=== PATIENT | male | born 1970 | race Two or more races ===

== ENCOUNTER 2020-01-20 13:03 | Outpatient (CLI) | payer MEDICAID ==
--- NOTE | 2020-01-20 20:45 | Consultation ---
DATE OF CONSULTATION: 01/20/2020 CHIEF COMPLAINT: GERD. HISTORY OF PRESENT ILLNESS: This is a very pleasant 50-year-old male with history of HIV/AIDS complaining of acid reflux symptoms for about six months for which he started taking Nexium and the symptoms as along as the patient is on Nexium is better, now even if he does not take the Nexium for three to four days he is still okay and then he started having some acid reflux symptoms. According to him, he has HIV/AIDS, he was off medication. He is back on his medications since October. His CD4 count is coming up and his symptoms are getting better. PAST SURGICAL HISTORY: None. PAST MEDICAL HISTORY: 1. HIV/AIDS. 2. GERD. MEDICATIONS: Nexium and HIV medications. FAMILY HISTORY: No family history of GI malignancies. SOCIAL HISTORY: The patient denies any recent tobacco, alcohol, or drug abuse. ALLERGIES: No known drug allergies. REVIEW OF SYSTEMS: Negative. PHYSICAL EXAMINATION: GENERAL: A well-developed male, in no acute distress HEENT: Normocephalic and atraumatic. Sclerae anicteric. NECK: Supple. No evidence of obvious lymphadenopathy. CARDIOVASCULAR: Regular rate and rhythm. Plus S1, S2. LUNGS: Clear to auscultation bilaterally. ABDOMEN: Positive bowel sounds. Soft and nontender. No rebound. No guarding. No peritoneal sign. EXTREMITIES: No cyanosis. No clubbing. No edema. ASSESSMENT AND PLAN: The patient is a 50-year-old male with mild GERD. The patient was told to continue to Nexium every as needed to prevent symptoms. At this time, there does not seem to be any alarming symptoms including weight loss, dysphagia, GI bleeding. I told the patient that the he would need colonoscopy when he turned to age of 51 next year in January, so the patient to come back next year for colonoscopy. At that time, we will also consider doing endoscopy if he is still symptomatic. Meanwhile, if his symptoms gets worse from now until then including having the bleeding, having dysphagia, having worsening of the symptoms despite of Nexium, the patient was instructed to come back for endoscopy. Teo Clarke M.D. DR: Wade JOB#: [id number] CC:
[2020-01-21] MEDS ORDERED: NEXIUM40 MG ORAL (15:30)
== END 2020-01-20 15:55 | disposition home or self-care (01) ==
LOC: PAN 13:03
DX: K21.9 Gastro-esophageal reflux disease without esophagitis (principal); B20 Human immunodeficiency virus [HIV] disease